=== PATIENT | female | born 1965 | race Caucasian/White ===

== ENCOUNTER 2018-09-16 14:09 | Emergency (ER) | payer MEDICAID, OTHER ==
[2018-09-16] MEDS ORDERED: HYDROmorphONE/DILAUDID 2 MG/ML INJ IVP ONE (15:21)
[2018-09-16] MEDS ORDERED: DIAZEPAM 10 MG/2 ML SYR IVP ONE (15:22)
[2018-09-16] MEDS ORDERED: LIDOCAINE 4%/MENTHOL 1% PATCH TD ONE (15:23)
[2018-09-16] MEDS ORDERED: KETOROLAC 15 MG/1 ML SDV IVP ONE (15:23)
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
[2018-09-16] MEDS ORDERED: DEXAMETHASONE 4 MG TAB PO ONE (16:34)
[2018-09-16] MEDS ORDERED: ACETAMINOPHEN 500 MG TAB PO ONE (16:34)
[2018-09-16 17:25] VITALS: BP 130/85
[2018-09-16] MEDS ORDERED: PATCH REMOVAL 1 EA PATCH TD SCH (21:00)
== END 2018-09-16 17:25 | disposition home or self-care (01) ==
DX: S13.9XXA Sprain of joints and ligaments of unspecified parts of neck, initial encounter (principal); M54.5 Low back pain; V89.2XXA Person injured in unspecified motor-vehicle accident, traffic, initial encounter
CPT/HCPCS: 96374; J1170; J1885; J3360